=== PATIENT | female | born 1950 | race Caucasian/White ===

== ENCOUNTER 2019-04-17 14:20 | Emergency (ER) | payer MEDICARE ==
[~2019-04-17] VITALS: Ht 154.9 cm; Wt 59.1 kg
[2019-04-17 14:50] LABS: MEAN CELL VOLUME 91 fl (78-100); MEAN CORPUSCULAR HEMOGLOBIN 32 pg (27-31); MEAN CORPUSCULAR HGB CONC 35 g/dL (33-37); MEAN PLATELET VOLUME 10.6 fl (7.4-10.4); PLATELET COUNT 218 K/mm3 (130-400); RED BLOOD COUNT 5.05 M/mm3 (4.10-5.30); RED CELL DISTRIBUTION WIDTH 12.7 % (11.5-14.5); WHITE BLOOD COUNT 7.9 K/mm3 (4.8-10.8)
[2019-04-17 15:10] LABS: LYMPHOCYTE 26 % (20-51); MONOCYTE 13 % (3-10); NEUTROPHILS 50 % (42-75)
[2019-04-17 15:11] LABS: ALBUMIN 4.6 g/dL (3.4-4.8); POTASSIUM 4.3 mmol/L (3.5-5.1)
[2019-04-17 15:12] LABS: CALCIUM 9.7 mg/dL (8.3-10.5)
[2019-04-17 15:15] LABS: D-DIMER 0.85 mg/L FEU (0.15-0.50); TOTAL BILIRUBIN 1.7 mg/dL (0.2-1.2)
[2019-04-17 15:34] LABS: PH-URINE 5.5 (5.0 - 8.0); URINE APPEARANCE CLEAR; URINE BILIRUBIN NEGATIVE (NEGATIVE); URINE BLOOD 50 ery/uL (NEGATIVE); URINE COLOR STRAW; URINE GLUCOSE NEGATIVE (NEGATIVE); URINE KETONE NEGATIVE (NEGATIVE); URINE LEUKOCYTE ESTERASE 1+ (NEGATIVE); URINE NITRATE NEGATIVE (NEGATIVE); URINE PROTEIN(semi-quant) 1+ mg/dL (NEGATIVE); URINE UROBILINOGEN NORMAL (NORMAL)
[2019-04-17 15:35] LABS: URINE WBC 16-30 /hpf (0-3)
[2019-04-17] MEDS ORDERED: PREDNISONE20 M1 PO (15:55)
[2019-04-17 16:19] VITALS: BP 150/92
[2019-04-17] MEDS ORDERED: SEPTRA DS 8001 TAB PO (16:21)
== END 2019-04-17 16:25 | disposition home or self-care (01) ==
LOC: ED 14:20
PROVIDERS: Family Medicine
DX: J45.909 Unspecified asthma, uncomplicated (principal); N39.0 Urinary tract infection, site not specified; I10 Essential (primary) hypertension; K21.9 Gastro-esophageal reflux disease without esophagitis
CPT/HCPCS: J2930; J7512